=== PATIENT | male | born 1940 | race Caucasian/White ===

== ENCOUNTER 2018-04-20 09:47 | Observation (INO) ==
[2018-04-20 10:15] LABS: Basophils # 0.1 10*3/uL (0.0-0.2); Basophils % 0.9 % (0.0-0.8); Eosinophils # 0.4 10*3/uL (0.0-0.87); Eosinophils % 4.1 % (0.00-10.9); Hematocrit 46.5 VOL% (42.0-52.0); Hemoglobin 14.8 GM/DL (14.0-18.0); Immature Granulocytes % 0.6 %; Immature Granulocytes Absolute 0.05 #; Lymphocytes # 1.9 10*3/uL (1.4-4.0); Lymphocytes % 20.9 % (21.2-54.2); Mean Corpuscular HGB Conc 31.8 GM/DL (32-36); Mean Corpuscular Hemoglobin 26 PG (27-34); Mean Corpuscular Volume 80.9 FL (87-102); Mean Platelet Volume 10.8 FL (9.6-12.0); Monocytes # 0.8 10*3/uL (0.11-0.8); Monocytes % 8.5 % (1.7-12.7); Neutrophils # 5.8 10*3/uL (1.4-7.4); Platelet Count 220 T/CUMM (130-400); Red Blood Count 5.75 MC/CUMM (3.8-5.5); Red Cell Distribution Width 15.9 % (9.3-17.3); White Blood Count 8.9 T/CUMM (4-12)
[2018-04-20 10:22] LABS: Apearance,Urine CLEAR (Clear); Bacteria,Urine Occasional /HPF (Few); Bilirubin,Urine Negative (Negative); Blood, Urine Moderate mg/dL (Negative); Glucose,Urine (UA) Negative (Negative); Ketones,Urine Negative (Negative); Nitrite,Urine Negative (Negative); Protein,Urine 30 MG/DL; RBC,Urine 1 /HPF (0-4); Squamous Epithelial Cell,Urine Occasional /HPF (0-10); Urine Color Straw (Yellow); Urine Specific Gravity 1.005 (1.001-1.035); Urine Urobilinogen < 2.0 EU/DL (0.2-1.0); WBC,Urine 2 /HPF (0-6)
[2018-04-20 10:27] LABS: Osmolality,Calculated 285.1 MOS/KG (273-304); Potassium 3.7 MMOL/L (3.5-5.1)
[2018-04-20 11:49] LABS: PT Patient Result 11.2 SECS
[2018-04-20] MEDS ORDERED: MORPHINE 4 MG/1 ML VIAL IV PRN (11:58)
[2018-04-20] MEDS ORDERED: ONDANSETRON 4 MG/2 ML VIAL IV PRN (11:58)
[2018-04-20] MEDS ORDERED: ACETAMINOPHEN 325 MG TABLET PO PRN (11:58)
[2018-04-20] MEDS ORDERED: KETOROLAC 10 MG TABLET PO PRN (11:58)
[2018-04-20] MEDS ORDERED: BISACODYL 5 MG TABLET PO PRN (11:58)
[2018-04-20] MEDS ORDERED: hydrALAZINE 20 MG/1 ML VIAL IV PRN (12:02)
[2018-04-20] MEDS ORDERED: GLUCAGON 1 MG VIAL IM PRN (12:11)
[2018-04-20] MEDS ORDERED: DEXTROSE 50% 25 GM/50 ML VIAL IV PRN (12:11)
[2018-04-20] MEDS ORDERED: NON-FORMULARY MEDICATION (Liraglutide [Victoza 2-Pak] 1.2 MG) SUBCUT SCH (12:15)
[2018-04-20] MEDS ORDERED: TISSUE ADHESIVE 1 EACH APPLICATOR TOP ONE (12:57)
[2018-04-20] MEDS: sitaGLIPtin 100 MG TABLET PO SCH (14:45)
[2018-04-20] MEDS: PANTOPRAZOLE 40 MG TABLET PO SCH (14:45)
[2018-04-20] MEDS: ATORVASTATIN 40 MG TABLET PO SCH (14:45)
[2018-04-20] MEDS: PIOGLITAZONE 45 MG TABLET PO SCH (14:45)
[2018-04-20] MEDS: LACTATED RINGERS 1,000 ML IV SCH (14:46)
[2018-04-20] MEDS: CARVEDILOL 25 MG TABLET PO SCH (14:46)
[2018-04-20] MEDS: LISINOPRIL 20 MG TABLET PO SCH (14:46)
[2018-04-20] MEDS: INSULIN LISPRO 100 UNIT/ML SUBCUT SCH (16:51)
[2018-04-20] MEDS ORDERED: HydrOXYzine PAMOATE 25 MG CAPSULE PO SCH (21:00)
[2018-04-21] MEDS: LACTATED RINGERS 1,000 ML IV SCH (03:23)
[2018-04-21 04:58] LABS: Basophils # 0.1 10*3/uL (0.0-0.2); Basophils % 0.5 % (0.0-0.8); Eosinophils # 0.3 10*3/uL (0.0-0.87); Eosinophils % 2.6 % (0.00-10.9); Hematocrit 43.1 VOL% (42.0-52.0); Hemoglobin 13.8 GM/DL (14.0-18.0); Immature Granulocytes % 0.6 %; Immature Granulocytes Absolute 0.06 #; Lymphocytes # 2.3 10*3/uL (1.4-4.0); Lymphocytes % 21.3 % (21.2-54.2); Mean Corpuscular Hemoglobin 26 PG (27-34); Mean Platelet Volume 10.7 FL (9.6-12.0); Monocytes # 1.3 10*3/uL (0.11-0.8); Monocytes % 12.5 % (1.7-12.7); Neutrophils # 6.7 10*3/uL (1.4-7.4); Neutrophils % 62.5 % (38.7-73.9); Platelet Count 222 T/CUMM (130-400); Red Blood Count 5.32 MC/CUMM (3.8-5.5); Red Cell Distribution Width 15.8 % (9.3-17.3); White Blood Count 10.6 T/CUMM (4-12)
[2018-04-21 05:20] LABS: Osmolality,Calculated 281.3 MOS/KG (273-304); Potassium 3.1 MMOL/L (3.5-5.1)
[2018-04-21 05:24] LABS: Risk Ratio 6.09; VLDL CHOLESTEROL 53.4 MG/DL
[2018-04-21] MEDS: INSULIN LISPRO 100 UNIT/ML SUBCUT SCH ×2 (07:35→13:02)
[2018-04-21 07:42] VITALS: BP 174/82
[2018-04-21] MEDS: PIOGLITAZONE 45 MG TABLET PO SCH (09:06)
[2018-04-21] MEDS: ATORVASTATIN 40 MG TABLET PO SCH (09:06)
[2018-04-21] MEDS: LISINOPRIL 20 MG TABLET PO SCH (09:06)
[2018-04-21] MEDS: PANTOPRAZOLE 40 MG TABLET PO SCH (09:06)
[2018-04-21] MEDS: sitaGLIPtin 100 MG TABLET PO SCH (09:06)
[2018-04-21] MEDS: CARVEDILOL 25 MG TABLET PO SCH (09:07)
[2018-04-21] MEDS ORDERED: POTASSIUM CHLORIDE 20 MEQ TABLET PO ONE (09:39)
== END 2018-04-21 13:00 | disposition home or self-care (01) ==
LOC: EDUNIT# → EDBD → N.EDINP 09:47 → N.ED 09:47 → N.EDINP 13:07 → N.3E 13:10
PROVIDERS: ADMIT Surgery; ATTEND Surgery

== ENCOUNTER 2020-07-08 14:27 | Inpatient (IN) ==
[2020-07-08 15:10] LABS: Basophils % 0.3 % (0.0-0.8); Eosinophils # 0.2 10*3/uL (0.0-0.87); Eosinophils % 1.7 % (0.00-10.9); Hematocrit 45.5 VOL% (42.0-52.0); Hemoglobin 15.5 GM/DL (14.0-18.0); Immature Granulocytes % 1.4 %; Immature Granulocytes Absolute 0.18 #; Lymphocytes # 1.7 10*3/uL (1.4-4.0); Lymphocytes % 12.8 % (21.2-54.2); Mean Corpuscular HGB Conc 34.1 GM/DL (32-36); Mean Platelet Volume 11.5 FL (9.6-12.0); Monocytes % 7.3 % (1.7-12.7); Neutrophils % 76.5 % (38.7-73.9); Platelet Count 210 T/CUMM (130-400); Red Blood Count 5.55 MC/CUMM (3.8-5.5); Red Cell Distribution Width 13.6 % (9.3-17.3); White Blood Count 13.3 T/CUMM (4-12)
[2020-07-08 15:32] LABS: Albumin 3.9 G/DL (3.4-5.0); Calcium 9.4 MG/DL (8.5-10.1); INR 1.1; Osmolality,Calculated 273.5 MOS/KG (273-304); Partial Thromboplastin Time 28.2 SECS (23.9-33.8); Potassium 5.3 MMOL/L (3.5-5.1); Total Protein 7.9 G/DL (6.4-8.2)
[2020-07-08] MEDS ORDERED: ACETAMINOPHEN 325 MG TABLET PO PRN (15:51)
[2020-07-08] MEDS ORDERED: ONDANSETRON 4 MG/2 ML VIAL IV PRN (15:51)
[2020-07-08 16:12] LABS: Bacteria,Urine Occasional /HPF (Few); Bilirubin,Urine Negative (Negative); Blood, Urine Small mg/dL (Negative); Glucose,Urine (UA) >=500 mg/dL (Negative); Ketones,Urine Negative (Negative); Mucus,Urine Occasional /LPF (Occasional); Nitrite,Urine Negative (Negative); Protein,Urine >=500 MG/DL; RBC,Urine 2 /HPF (0-4); Squamous Epithelial Cell,Urine Occasional /HPF (0-10); Urine Appearance CLEAR (Clear); Urine Color Yellow (Yellow); Urine Specific Gravity 1.011 (1.001-1.035); Urine Urobilinogen < 2.0 EU/DL (0.2-1.0)
[2020-07-08] MEDS: DOCUSATE SODIUM 100 MG CAPSULE PO SCH (21:15)
[2020-07-09 06:42] LABS: Basophils # 0.1 10*3/uL (0.0-0.2); Basophils % 0.4 % (0.0-0.8); Eosinophils # 0.3 10*3/uL (0.0-0.87); Eosinophils % 1.8 % (0.00-10.9); Hematocrit 43.9 VOL% (42.0-52.0); Hemoglobin 14.7 GM/DL (14.0-18.0); Immature Granulocytes % 0.9 %; Immature Granulocytes Absolute 0.15 #; Lymphocytes # 2.5 10*3/uL (1.4-4.0); Lymphocytes % 15.1 % (21.2-54.2); Mean Corpuscular HGB Conc 33.5 GM/DL (32-36); Mean Corpuscular Volume 81.4 FL (87-102); Mean Platelet Volume 10.4 FL (9.6-12.0); Neutrophils % 69.8 % (38.7-73.9); Platelet Count 246 T/CUMM (130-400); Red Blood Count 5.39 MC/CUMM (3.8-5.5); Red Cell Distribution Width 13.5 % (9.3-17.3); White Blood Count 16.2 T/CUMM (4-12)
[2020-07-09 07:02] LABS: Calcium 9.5 MG/DL (8.5-10.1); Osmolality,Calculated 275.4 MOS/KG (273-304); Potassium 3.7 MMOL/L (3.5-5.1)
[2020-07-09 07:07] LABS: CKMB % 1.2 %
[2020-07-09 07:09] LABS: Troponin I 2.06 NG/ML (0.00-0.045)
[2020-07-09] MEDS ORDERED: ZALEPLON 5 MG CAPSULE PO PRN (08:32)
[2020-07-09] MEDS ORDERED: lisinopriL 20 MG TABLET PO SCH (09:00)
[2020-07-09] MEDS ORDERED: ENOXAPARIN 40 MG/0.4 ML SYRINGE SUBCUT SCH (09:00)
[2020-07-09] MEDS: PIOGLITAZONE 15 MG TABLET PO SCH (09:59)
[2020-07-09] MEDS: ASPIRIN EC 81 MG TABLET PO SCH (09:59)
[2020-07-09] MEDS: sitaGLIPtin 100 MG TABLET PO SCH (10:00)
[2020-07-09] MEDS: DOCUSATE SODIUM 100 MG CAPSULE PO SCH ×2 (10:00→20:33)
[2020-07-09] MEDS: ATORVASTATIN 40 MG TABLET PO SCH (10:00)
[2020-07-09] MEDS: PANTOPRAZOLE 40 MG TABLET PO SCH (10:00)
[2020-07-09] MEDS: carvediloL 12.5 MG TABLET PO SCH ×2 (10:01→20:34)
[2020-07-09 11:19] LABS: CKMB % 0.9 %
[2020-07-09 11:20] LABS: Troponin I 1.83 NG/ML (0.00-0.045)
[2020-07-09 11:58] LABS: CKMB % 0.8 %
[2020-07-09 11:59] LABS: Troponin I 1.83 NG/ML (0.00-0.045)
[2020-07-09] MEDS: INSULIN LISPRO 100 UNIT/ML SUBCUT SCH ×3 (14:27→21:27)
[2020-07-10 06:34] LABS: Basophils % 0.2 % (0.0-0.8); Eosinophils # 0.3 10*3/uL (0.0-0.87); Eosinophils % 1.6 % (0.00-10.9); Hematocrit 48.7 VOL% (42.0-52.0); Hemoglobin 15.8 GM/DL (14.0-18.0); Immature Granulocytes % 0.8 %; Immature Granulocytes Absolute 0.13 #; Lymphocytes # 2.3 10*3/uL (1.4-4.0); Lymphocytes % 13.9 % (21.2-54.2); Mean Corpuscular HGB Conc 32.4 GM/DL (32-36); Mean Corpuscular Volume 83.2 FL (87-102); Mean Platelet Volume 10.5 FL (9.6-12.0); Monocytes % 11.5 % (1.7-12.7); Platelet Count 262 T/CUMM (130-400); Red Blood Count 5.85 MC/CUMM (3.8-5.5); Red Cell Distribution Width 13.7 % (9.3-17.3); White Blood Count 16.1 T/CUMM (4-12)
[2020-07-10 06:52] LABS: Calcium 9.4 MG/DL (8.5-10.1); Osmolality,Calculated 273.4 MOS/KG (273-304); Potassium 3.8 MMOL/L (3.5-5.1)
[2020-07-10] MEDS: INSULIN LISPRO 100 UNIT/ML SUBCUT SCH ×4 (07:04→21:26)
[2020-07-10 07:18] LABS: Albumin 3.5 G/DL (3.4-5.0); Bilirubin,Total 1.3 MG/DL (0.2-1.0); Calcium 9.5 MG/DL (8.5-10.1); Osmolality,Calculated 274.4 MOS/KG (273-304); Potassium 3.8 MMOL/L (3.5-5.1); Thyroid Stimulating Hormone 4.13 uIU/ml (0.358-3.74); Total Protein 7.7 G/DL (6.4-8.2); VLDL CHOLESTEROL 59.8 MG/DL
[2020-07-10] MEDS: DOCUSATE SODIUM 100 MG CAPSULE PO SCH ×2 (09:24→21:25)
[2020-07-10] MEDS: PANTOPRAZOLE 40 MG TABLET PO SCH (09:24)
[2020-07-10] MEDS: ASPIRIN EC 81 MG TABLET PO SCH (09:24)
[2020-07-10] MEDS: sitaGLIPtin 100 MG TABLET PO SCH (09:24)
[2020-07-10] MEDS: PIOGLITAZONE 15 MG TABLET PO SCH (09:24)
[2020-07-10] MEDS: carvediloL 12.5 MG TABLET PO SCH ×2 (09:25→21:25)
[2020-07-10] MEDS: OLMESARTAN 20 MG TABLET PO SCH (09:25)
[2020-07-10] MEDS: ATORVASTATIN 40 MG TABLET PO SCH (09:26)
[2020-07-10] MEDS: LIRAGLUTIDE SUBCUT SCH (10:52)
[2020-07-10 10:53] LABS: Troponin I 0.998 NG/ML (0.00-0.045)
[2020-07-10] MEDS: LACTATED RINGERS 1,000 ML IV SCH (13:10)
[2020-07-10] MEDS ORDERED: ETOMIDATE 20 MG/10 ML VIAL IV ONE (14:20)
[2020-07-10] MEDS ORDERED: LIDOCAINE 2% 5 ML VIAL ONE (14:20)
[2020-07-10] MEDS ORDERED: propofoL 200 MG/20 ML VIAL IV ONE (14:32)
[2020-07-10] MEDS ORDERED: TUBERCULIN SKIN TEST 0.1 ML SYRINGE INTRADERM ONE (15:50)
[2020-07-10] MEDS: TAMSULOSIN 0.4 MG CAPSULE PO SCH (21:25)
[2020-07-11 05:33] LABS: Basophils # 0.1 10*3/uL (0.0-0.2); Basophils % 0.3 % (0.0-0.8); Eosinophils # 0.2 10*3/uL (0.0-0.87); Eosinophils % 1.1 % (0.00-10.9); Hematocrit 46.5 VOL% (42.0-52.0); Immature Granulocytes % 0.7 %; Lymphocytes # 1.9 10*3/uL (1.4-4.0); Lymphocytes % 12.4 % (21.2-54.2); Mean Corpuscular HGB Conc 32.3 GM/DL (32-36); Mean Corpuscular Volume 84.5 FL (87-102); Mean Platelet Volume 10.5 FL (9.6-12.0); Monocytes % 11.6 % (1.7-12.7); Neutrophils % 73.9 % (38.7-73.9); Platelet Count 243 T/CUMM (130-400); Red Cell Distribution Width 13.6 % (9.3-17.3); White Blood Count 15.3 T/CUMM (4-12)
[2020-07-11 05:48] LABS: Albumin 3.3 G/DL (3.4-5.0); Bilirubin,Total 1.4 MG/DL (0.2-1.0); Calcium 8.9 MG/DL (8.5-10.1); Osmolality,Calculated 280.1 MOS/KG (273-304); Potassium 3.8 MMOL/L (3.5-5.1); Total Protein 6.8 G/DL (6.4-8.2)
[2020-07-11 06:01] LABS: Calcium 8.9 MG/DL (8.5-10.1); Potassium 3.4 MMOL/L (3.5-5.1)
[2020-07-11] MEDS: ATORVASTATIN 40 MG TABLET PO SCH (09:38)
[2020-07-11] MEDS: PANTOPRAZOLE 40 MG TABLET PO SCH (09:38)
[2020-07-11] MEDS: ASPIRIN EC 81 MG TABLET PO SCH (09:38)
[2020-07-11] MEDS: PIOGLITAZONE 15 MG TABLET PO SCH (09:38)
[2020-07-11] MEDS: sitaGLIPtin 100 MG TABLET PO SCH (09:38)
[2020-07-11] MEDS: carvediloL 12.5 MG TABLET PO SCH ×3 (09:38→20:27)
[2020-07-11] MEDS: OLMESARTAN 20 MG TABLET PO SCH ×2 (09:38→09:42)
[2020-07-11] MEDS: DOCUSATE SODIUM 100 MG CAPSULE PO SCH ×2 (09:38→20:27)
[2020-07-11] MEDS: INSULIN LISPRO 100 UNIT/ML SUBCUT SCH ×4 (09:47→20:28)
[2020-07-11] MEDS: TAMSULOSIN 0.4 MG CAPSULE PO SCH ×2 (10:10→20:27)
[2020-07-11] MEDS: LIRAGLUTIDE SUBCUT SCH (10:50)
[2020-07-12] MEDS: LACTATED RINGERS 1,000 ML IV SCH ×2 (02:15→07:43)
[2020-07-12 06:06] LABS: Basophils # 0.1 10*3/uL (0.0-0.2); Basophils % 0.4 % (0.0-0.8); Eosinophils # 0.2 10*3/uL (0.0-0.87); Eosinophils % 1.3 % (0.00-10.9); Hematocrit 45.3 VOL% (42.0-52.0); Hemoglobin 14.7 GM/DL (14.0-18.0); Immature Granulocytes Absolute 0.15 #; Lymphocytes # 1.6 10*3/uL (1.4-4.0); Lymphocytes % 10.2 % (21.2-54.2); Mean Corpuscular HGB Conc 32.5 GM/DL (32-36); Mean Corpuscular Volume 83.9 FL (87-102); Mean Platelet Volume 10.4 FL (9.6-12.0); Monocytes % 10.3 % (1.7-12.7); Neutrophils % 76.8 % (38.7-73.9); Platelet Count 232 T/CUMM (130-400); Red Cell Distribution Width 13.7 % (9.3-17.3); White Blood Count 15.5 T/CUMM (4-12)
[2020-07-12 06:25] LABS: Calcium 8.8 MG/DL (8.5-10.1); Osmolality,Calculated 281.4 MOS/KG (273-304); Potassium 3.9 MMOL/L (3.5-5.1)
[2020-07-12] MEDS: LIRAGLUTIDE SUBCUT SCH (09:19)
[2020-07-12] MEDS: PIOGLITAZONE 15 MG TABLET PO SCH (09:21)
[2020-07-12] MEDS: INSULIN LISPRO 100 UNIT/ML SUBCUT SCH ×5 (09:21→21:09)
[2020-07-12] MEDS: carvediloL 12.5 MG TABLET PO SCH ×2 (09:21→21:10)
[2020-07-12] MEDS: DOCUSATE SODIUM 100 MG CAPSULE PO SCH ×2 (09:22→21:11)
[2020-07-12] MEDS: sitaGLIPtin 100 MG TABLET PO SCH (09:22)
[2020-07-12] MEDS: PANTOPRAZOLE 40 MG TABLET PO SCH (09:22)
[2020-07-12] MEDS: ATORVASTATIN 40 MG TABLET PO SCH (09:22)
[2020-07-12] MEDS: ASPIRIN EC 81 MG TABLET PO SCH (09:22)
[2020-07-12] MEDS: OLMESARTAN 20 MG TABLET PO SCH (09:22)
[2020-07-12] MEDS: TAMSULOSIN 0.4 MG CAPSULE PO SCH ×2 (09:22→21:10)
[2020-07-12 10:32] LABS: Bilirubin,Urine Negative (Negative); Blood, Urine Large mg/dL (Negative); Glucose,Urine (UA) >=500 mg/dL (Negative); Ketones,Urine Negative (Negative); Nitrite,Urine Negative (Negative); Protein,Urine 100 MG/DL; RBC,Urine 1563 /HPF (0-4); Urine Appearance CLOUDY (Clear); Urine Color Red (Yellow); Urine Specific Gravity 1.015 (1.001-1.035); Urine Urobilinogen < 2.0 EU/DL (0.2-1.0)
[2020-07-12] MEDS: cefTRIAXone 1,000 MG in SODIUM CHLORIDE 0.9% 100 ML IV SCH (11:45)
[2020-07-13 05:15] LABS: Basophils % 0.3 % (0.0-0.8); Eosinophils # 0.4 10*3/uL (0.0-0.87); Eosinophils % 3.4 % (0.00-10.9); Hematocrit 46.5 VOL% (42.0-52.0); Hemoglobin 14.2 GM/DL (14.0-18.0); Immature Granulocytes Absolute 0.12 #; Lymphocytes # 1.7 10*3/uL (1.4-4.0); Lymphocytes % 13.3 % (21.2-54.2); Mean Corpuscular HGB Conc 30.5 GM/DL (32-36); Mean Corpuscular Volume 88.4 FL (87-102); Mean Platelet Volume 11.5 FL (9.6-12.0); Monocytes % 9.2 % (1.7-12.7); Neutrophils % 72.8 % (38.7-73.9); Platelet Count 176 T/CUMM (130-400); Red Blood Count 5.26 MC/CUMM (3.8-5.5); Red Cell Distribution Width 13.7 % (9.3-17.3); White Blood Count 12.5 T/CUMM (4-12)
[2020-07-13 05:22] LABS: Calcium 8.8 MG/DL (8.5-10.1); Potassium 4.3 MMOL/L (3.5-5.1)
[2020-07-13] MEDS: INSULIN LISPRO 100 UNIT/ML SUBCUT SCH ×4 (06:54→20:35)
[2020-07-13] MEDS: LACTATED RINGERS 1,000 ML IV SCH (07:18)
[2020-07-13] MEDS: OLMESARTAN 20 MG TABLET PO SCH (09:14)
[2020-07-13] MEDS: sitaGLIPtin 100 MG TABLET PO SCH (09:15)
[2020-07-13] MEDS: PIOGLITAZONE 15 MG TABLET PO SCH (09:15)
[2020-07-13] MEDS: ASPIRIN EC 81 MG TABLET PO SCH (09:15)
[2020-07-13] MEDS: ATORVASTATIN 40 MG TABLET PO SCH (09:15)
[2020-07-13] MEDS: DOCUSATE SODIUM 100 MG CAPSULE PO SCH ×2 (09:15→20:35)
[2020-07-13] MEDS: TAMSULOSIN 0.4 MG CAPSULE PO SCH ×2 (09:15→20:35)
[2020-07-13] MEDS: PANTOPRAZOLE 40 MG TABLET PO SCH (09:15)
[2020-07-13] MEDS: carvediloL 12.5 MG TABLET PO SCH ×2 (09:15→20:35)
[2020-07-13] MEDS: LIRAGLUTIDE SUBCUT SCH (09:16)
[2020-07-13] MEDS: cefTRIAXone 1,000 MG in SODIUM CHLORIDE 0.9% 100 ML IV SCH (12:34)
[2020-07-14] MEDS: TAMSULOSIN 0.4 MG CAPSULE PO SCH ×2 (09:00→21:26)
[2020-07-14] MEDS: PIOGLITAZONE 15 MG TABLET PO SCH (09:01)
[2020-07-14] MEDS: sitaGLIPtin 100 MG TABLET PO SCH (09:02)
[2020-07-14] MEDS: ATORVASTATIN 40 MG TABLET PO SCH (09:02)
[2020-07-14] MEDS: OLMESARTAN 20 MG TABLET PO SCH (09:02)
[2020-07-14] MEDS: PANTOPRAZOLE 40 MG TABLET PO SCH (09:03)
[2020-07-14] MEDS: carvediloL 12.5 MG TABLET PO SCH (09:03)
[2020-07-14] MEDS: DOCUSATE SODIUM 100 MG CAPSULE PO SCH ×2 (09:03→21:26)
[2020-07-14] MEDS: ASPIRIN EC 81 MG TABLET PO SCH (09:03)
[2020-07-14] MEDS ORDERED: amLODIPine 5 MG TABLET PO SCH (10:30)
[2020-07-14] MEDS: LACTATED RINGERS 1,000 ML IV SCH (10:52)
[2020-07-14] MEDS: INSULIN LISPRO 100 UNIT/ML SUBCUT SCH ×4 (10:52→21:26)
[2020-07-14] MEDS: LIRAGLUTIDE SUBCUT SCH (10:53)
[2020-07-14] MEDS: cefTRIAXone 1,000 MG in SODIUM CHLORIDE 0.9% 100 ML IV SCH (13:14)
[2020-07-14] MEDS ORDERED: FINASTERIDE 5 MG TABLET PO SCH (21:00)
[2020-07-14] MEDS: carvediloL 6.25 MG TABLET PO SCH (21:27)
[2020-07-15 06:08] LABS: Calcium 9.2 MG/DL (8.5-10.1); Osmolality,Calculated 271.4 MOS/KG (273-304); Potassium 4.4 MMOL/L (3.5-5.1)
[2020-07-15 06:36] LABS: Basophils # 0.1 10*3/uL (0.0-0.2); Basophils % 0.6 % (0.0-0.8); Eosinophils # 0.4 10*3/uL (0.0-0.87); Eosinophils % 4.1 % (0.00-10.9); Hematocrit 47.7 VOL% (42.0-52.0); Hemoglobin 15.2 GM/DL (14.0-18.0); Immature Granulocytes Absolute 0.11 #; Lymphocytes # 2.2 10*3/uL (1.4-4.0); Lymphocytes % 19.9 % (21.2-54.2); Mean Corpuscular HGB Conc 31.9 GM/DL (32-36); Mean Corpuscular Volume 84.4 FL (87-102); Mean Platelet Volume 10.2 FL (9.6-12.0); Neutrophils % 64.4 % (38.7-73.9); Platelet Count 274 T/CUMM (130-400); Red Blood Count 5.65 MC/CUMM (3.8-5.5); Red Cell Distribution Width 13.6 % (9.3-17.3); White Blood Count 10.8 T/CUMM (4-12)
[2020-07-15] MEDS ORDERED: CEFUROXIME 500 MG TABLET PO SCH (09:00)
[2020-07-15] MEDS ORDERED: amLODIPine 10 MG TABLET PO SCH (09:00)
[2020-07-15] MEDS: OLMESARTAN 20 MG TABLET PO SCH (09:18)
[2020-07-15] MEDS: TAMSULOSIN 0.4 MG CAPSULE PO SCH (09:18)
[2020-07-15] MEDS: sitaGLIPtin 100 MG TABLET PO SCH (09:18)
[2020-07-15] MEDS: PIOGLITAZONE 15 MG TABLET PO SCH (09:18)
[2020-07-15] MEDS: ASPIRIN EC 81 MG TABLET PO SCH (09:18)
[2020-07-15] MEDS: ATORVASTATIN 40 MG TABLET PO SCH (09:19)
[2020-07-15] MEDS: DOCUSATE SODIUM 100 MG CAPSULE PO SCH (09:19)
[2020-07-15] MEDS: PANTOPRAZOLE 40 MG TABLET PO SCH (09:19)
[2020-07-15] MEDS: carvediloL 6.25 MG TABLET PO SCH (09:19)
[2020-07-15] MEDS: LIRAGLUTIDE SUBCUT SCH (09:27)
[2020-07-15] MEDS: INSULIN LISPRO 100 UNIT/ML SUBCUT SCH (09:52)
[2020-07-15] MEDS: LACTATED RINGERS 1,000 ML IV SCH (09:52)
[2020-07-15 11:58] VITALS: BP 162/70
== END 2020-07-15 14:30 | disposition swing bed (61) | DRG 69 ==
LOC: EDBD → EDUNIT# → N.ED 14:27 → N.EDINP 15:50 → N.3E 18:46
PROVIDERS: ADMIT Family Medicine; ATTEND Family Medicine

== ENCOUNTER 2020-09-25 09:06 | Inpatient (IN) ==
[2020-09-25] MEDS ORDERED: SODIUM CHLORIDE 0.9% 1,000 ML IV STA ×3 (10:12→12:00)
[2020-09-25 10:50] LABS: Basophils % 0.2 % (0.0-0.8); Eosinophils # 0.3 10*3/uL (0.0-0.87); Eosinophils % 3.1 % (0.00-10.9); Hematocrit 40.5 VOL% (42.0-52.0); Hemoglobin 13.1 GM/DL (14.0-18.0); Immature Granulocytes % 0.9 %; Immature Granulocytes Absolute 0.09 #; Lymphocytes % 19.1 % (21.2-54.2); Mean Corpuscular HGB Conc 32.3 GM/DL (32-36); Mean Corpuscular Volume 82.5 FL (87-102); Mean Platelet Volume 10.5 FL (9.6-12.0); Monocytes % 11.4 % (1.7-12.7); Neutrophils % 65.3 % (38.7-73.9); Platelet Count 167 T/CUMM (130-400); Red Blood Count 4.91 MC/CUMM (3.8-5.5); Red Cell Distribution Width 17.2 % (9.3-17.3); White Blood Count 10.6 T/CUMM (4-12)
[2020-09-25 11:00] LABS: INR 1.1; PT Patient Result 11.9 SECS (10.5-12.0); Partial Thromboplastin Time 29.9 SECS (23.9-33.8)
[2020-09-25 11:41] LABS: Albumin 3.1 G/DL (3.4-5.0); Bilirubin,Total 0.4 MG/DL (0.20-1.00); Calcium 8.7 MG/DL (8.5-10.1); Total Protein 7.5 G/DL (6.4-8.2)
[2020-09-25 11:47] LABS: Potassium 6.7 MMOL/L (3.5-5.1)
[2020-09-25 11:50] LABS: Osmolality,Calculated 325.4 MOS/KG (273-304)
[2020-09-25] MEDS ORDERED: DEXTROSE 50% 25 GM/50 ML VIAL IV STA (11:54)
[2020-09-25] MEDS ORDERED: INSULIN REGULAR 100 UNIT/ML IV STA (11:54)
[2020-09-25] MEDS ORDERED: SODIUM BICARBONATE 50 MEQ/50 ML VIAL IV STA (11:55)
[2020-09-25] MEDS ORDERED: CALCIUM CHLORIDE 1,000 MG/10 ML SYRINGE IV STA (11:55)
[2020-09-25] MEDS ORDERED: PIPERACILLIN/TAZOBACTAM 3,375 MG in SODIUM CHLORIDE 0.9% 100 ML IV STA (11:59)
[2020-09-25] MEDS ORDERED: MORPHINE 2 MG/1 ML SYRINGE IV PRN (12:22)
[2020-09-25 12:39] LABS: Bacteria,Urine Many /HPF (Few); Bilirubin,Urine Negative (Negative); Blood, Urine Moderate mg/dL (Negative); Glucose,Urine (UA) Negative (Negative); Hyaline Casts,Urine 12 /LPF (0-3); Ketones,Urine Negative (Negative); Mucus,Urine Occasional /LPF (Occasional); Nitrite,Urine Negative (Negative); Protein,Urine 100 MG/DL; RBC,Urine 55 /HPF (0-4); Squamous Epithelial Cell,Urine Occasional /HPF (0-10); Urine Appearance CLOUDY (Clear); Urine Color Amber (Yellow); Urine Specific Gravity 1.016 (1.001-1.035); Urine Urobilinogen < 2.0 EU/DL (0.2-1.0)
[2020-09-25 14:42] LABS: INR 1.1
[2020-09-25] MEDS: SODIUM BICARB INJ 150 MEQ in DEXTROSE 5% 1,000 ML IV SCH (14:54)
[2020-09-25] MEDS: cefTRIAXone 1,000 MG in SODIUM CHLORIDE 0.9% 100 ML IV SCH (14:54)
[2020-09-25] MEDS: HEPARIN 5,000 UNIT/1 ML VIAL SUBCUT SCH (14:54)
[2020-09-25 15:23] LABS: Calcium 9.1 MG/DL (8.5-10.1); Osmolality,Calculated 328.7 MOS/KG (273-304); Potassium 5.9 MMOL/L (3.5-5.1)
[2020-09-25] MEDS: NOREPINEPHRINE 8 MG in SODIUM CHLORIDE 0.9% 242 ML IV PRN ×2 (15:32→21:22)
[2020-09-25 16:57] LABS: Calcium 8.8 MG/DL (8.5-10.1); Osmolality,Calculated 328.5 MOS/KG (273-304)
[2020-09-25 17:02] LABS: Potassium 6.1 MMOL/L (3.5-5.1)
[2020-09-25] MEDS ORDERED: NOREPINEPHRINE 4 MG/4 ML VIAL IV ONE (21:18)
[2020-09-26] MEDS: SODIUM BICARB INJ 150 MEQ in DEXTROSE 5% 1,000 ML IV SCH ×2 (00:01→08:52)
[2020-09-26] MEDS: HEPARIN 5,000 UNIT/1 ML VIAL SUBCUT SCH ×3 (01:10→23:56)
[2020-09-26] MEDS: NOREPINEPHRINE 8 MG in SODIUM CHLORIDE 0.9% 242 ML IV PRN ×2 (02:45→20:44)
[2020-09-26 05:45] LABS: Basophils # 0.1 10*3/uL (0.0-0.2); Basophils % 0.4 % (0.0-0.8); Eosinophils # 0.2 10*3/uL (0.0-0.87); Eosinophils % 1.7 % (0.00-10.9); Hematocrit 46.2 VOL% (42.0-52.0); Hemoglobin 15.3 GM/DL (14.0-18.0); Immature Granulocytes % 1.3 %; Immature Granulocytes Absolute 0.15 #; Lymphocytes % 16.8 % (21.2-54.2); Mean Corpuscular HGB Conc 33.1 GM/DL (32-36); Mean Corpuscular Volume 80.2 FL (87-102); Mean Platelet Volume 10.3 FL (9.6-12.0); Monocytes % 11.9 % (1.7-12.7); Neutrophils % 67.9 % (38.7-73.9); Platelet Count 215 T/CUMM (130-400); Red Blood Count 5.76 MC/CUMM (3.8-5.5); Red Cell Distribution Width 17.4 % (9.3-17.3); White Blood Count 11.9 T/CUMM (4-12)
[2020-09-26 06:05] LABS: Bilirubin,Total 0.5 MG/DL (0.20-1.00); Calcium 8.7 MG/DL (8.5-10.1); Osmolality,Calculated 333.3 MOS/KG (273-304); Potassium 5.3 MMOL/L (3.5-5.1); Total Protein 7.6 G/DL (6.4-8.2)
[2020-09-26] MEDS ORDERED: MAGNESIUM SULF RIDER 2 GM/50 ML PREMIX IV ONE (08:06)
[2020-09-26] MEDS: PANTOPRAZOLE 40 MG TABLET PO SCH (08:28)
[2020-09-26] MEDS: SODIUM BICARB INJ 100 MEQ in DEXTROSE 5% 1,000 ML IV SCH ×2 (08:51→17:27)
[2020-09-26] MEDS ORDERED: DEXTROSE 50% 25 GM/50 ML VIAL IV PRN (09:59)
[2020-09-26] MEDS ORDERED: GLUCAGON 1 MG VIAL IM PRN (09:59)
[2020-09-26] MEDS: INSULIN LISPRO 100 UNIT/ML SUBCUT SCH ×3 (11:41→23:23)
[2020-09-26] MEDS: cefTRIAXone 1,000 MG in SODIUM CHLORIDE 0.9% 100 ML IV SCH (11:42)
[2020-09-26] MEDS ORDERED: INSULIN LISPRO 100 UNIT/ML SUBCUT SCH (22:00)
[2020-09-27] MEDS: SODIUM BICARB INJ 100 MEQ in DEXTROSE 5% 1,000 ML IV SCH (01:52)
[2020-09-27 04:20] LABS: Basophils # 0.1 10*3/uL (0.0-0.2); Basophils % 0.5 % (0.0-0.8); Eosinophils # 0.2 10*3/uL (0.0-0.87); Eosinophils % 1.8 % (0.00-10.9); Hematocrit 40.8 VOL% (42.0-52.0); Hemoglobin 13.7 GM/DL (14.0-18.0); Immature Granulocytes % 0.8 %; Lymphocytes # 2.7 10*3/uL (1.4-4.0); Lymphocytes % 21.5 % (21.2-54.2); Mean Corpuscular HGB Conc 33.6 GM/DL (32-36); Mean Corpuscular Volume 79.1 FL (87-102); Mean Platelet Volume 10.9 FL (9.6-12.0); Monocytes % 15.2 % (1.7-12.7); Neutrophils % 60.2 % (38.7-73.9); Platelet Count 160 T/CUMM (130-400); Red Blood Count 5.16 MC/CUMM (3.8-5.5); Red Cell Distribution Width 17.1 % (9.3-17.3); White Blood Count 12.6 T/CUMM (4-12)
[2020-09-27 04:46] LABS: Calcium 8.2 MG/DL (8.5-10.1); Osmolality,Calculated 318.1 MOS/KG (273-304); Potassium 4.1 MMOL/L (3.5-5.1)
[2020-09-27] MEDS: INSULIN LISPRO 100 UNIT/ML SUBCUT SCH ×4 (06:02→23:39)
[2020-09-27] MEDS: PANTOPRAZOLE 40 MG TABLET PO SCH (08:00)
[2020-09-27] MEDS: SODIUM CHLORIDE 0.9% 1,000 ML IV SCH ×2 (09:16→18:01)
[2020-09-27] MEDS: cefTRIAXone 1,000 MG in SODIUM CHLORIDE 0.9% 100 ML IV SCH (11:34)
[2020-09-27] MEDS: HEPARIN 5,000 UNIT/1 ML VIAL SUBCUT SCH (11:34)
[2020-09-27] MEDS: MEROPENEM 500 MG in SODIUM CHLORIDE 0.9% 100 ML IV SCH (13:04)
[2020-09-27 23:32] LABS: Calcium 8.3 MG/DL (8.5-10.1); Osmolality,Calculated 313.8 MOS/KG (273-304); Potassium 3.8 MMOL/L (3.5-5.1)
[2020-09-27] MEDS ORDERED: MAGNESIUM SULF RIDER 4 GM/100 ML PREMIX IV PRN (23:40)
[2020-09-28] MEDS: HEPARIN 5,000 UNIT/1 ML VIAL SUBCUT SCH ×2 (00:47→12:36)
[2020-09-28] MEDS: MAGNESIUM SULF RIDER 2 GM/50 ML PREMIX IV PRN (00:47)
[2020-09-28] MEDS: SODIUM CHLORIDE 0.9% 1,000 ML IV SCH (02:01)
[2020-09-28 04:33] LABS: Basophils % 0.2 % (0.0-0.8); Eosinophils # 0.1 10*3/uL (0.0-0.87); Eosinophils % 0.6 % (0.00-10.9); Hematocrit 41.4 VOL% (42.0-52.0); Hemoglobin 13.1 GM/DL (14.0-18.0); Immature Granulocytes % 0.7 %; Immature Granulocytes Absolute 0.08 #; Lymphocytes # 1.6 10*3/uL (1.4-4.0); Lymphocytes % 14.6 % (21.2-54.2); Mean Corpuscular HGB Conc 31.6 GM/DL (32-36); Mean Corpuscular Volume 83.3 FL (87-102); Mean Platelet Volume 10.7 FL (9.6-12.0); Neutrophils % 68.9 % (38.7-73.9); Platelet Count 155 T/CUMM (130-400); Red Blood Count 4.97 MC/CUMM (3.8-5.5); Red Cell Distribution Width 17.1 % (9.3-17.3)
[2020-09-28 04:37] LABS: Calcium 8.4 MG/DL (8.5-10.1); Osmolality,Calculated 311.7 MOS/KG (273-304); Potassium 3.7 MMOL/L (3.5-5.1)
[2020-09-28 04:38] LABS: Uric Acid 12.6 MG/DL (3.5-7.2)
[2020-09-28 04:48] LABS: Bilirubin,Urine Negative (Negative); Blood, Urine Moderate mg/dL (Negative); Glucose,Urine (UA) Negative (Negative); Hyaline Casts,Urine 10 /LPF (0-3); Ketones,Urine Negative (Negative); Nitrite,Urine Negative (Negative); Protein,Urine 30 MG/DL; RBC,Urine 20 /HPF (0-4); Urine Appearance CLOUDY (Clear); Urine Color Yellow (Yellow); Urine Specific Gravity 1.012 (1.001-1.035); Urine Urobilinogen < 2.0 EU/DL (0.2-1.0)
[2020-09-28] MEDS: INSULIN LISPRO 100 UNIT/ML SUBCUT SCH ×3 (06:46→19:46)
[2020-09-28] MEDS: PANTOPRAZOLE 40 MG TABLET PO SCH (08:09)
[2020-09-28] MEDS: SODIUM CHLORIDE 0.45% 1,000 ML IV SCH ×3 (09:37→20:12)
[2020-09-28 12:00] LABS: Albumin 2.7 G/DL (3.4-5.0); Bilirubin,Direct 0.18 MG/DL (0.0-0.20); Bilirubin,Indirect 0.7 MG/DL (0.0-1.0); Bilirubin,Total 0.9 MG/DL (0.20-1.00); Total Protein 6.8 G/DL (6.4-8.2)
[2020-09-28] MEDS: MEROPENEM 500 MG in SODIUM CHLORIDE 0.9% 100 ML IV SCH (12:36)
[2020-09-29] MEDS: INSULIN LISPRO 100 UNIT/ML SUBCUT SCH ×4 (00:19→17:43)
[2020-09-29] MEDS: HEPARIN 5,000 UNIT/1 ML VIAL SUBCUT SCH ×2 (00:34→12:26)
[2020-09-29 05:24] LABS: Basophils % 0.3 % (0.0-0.8); Eosinophils # 0.2 10*3/uL (0.0-0.87); Eosinophils % 1.7 % (0.00-10.9); Hematocrit 38.1 VOL% (42.0-52.0); Immature Granulocytes % 0.7 %; Immature Granulocytes Absolute 0.06 #; Lymphocytes # 1.5 10*3/uL (1.4-4.0); Lymphocytes % 16.5 % (21.2-54.2); Mean Corpuscular HGB Conc 31.5 GM/DL (32-36); Mean Corpuscular Volume 83.2 FL (87-102); Mean Platelet Volume 10.7 FL (9.6-12.0); Monocytes % 11.6 % (1.7-12.7); Neutrophils % 69.2 % (38.7-73.9); Platelet Count 133 T/CUMM (130-400); Red Blood Count 4.58 MC/CUMM (3.8-5.5); White Blood Count 8.8 T/CUMM (4-12)
[2020-09-29 05:51] LABS: Calcium 7.7 MG/DL (8.5-10.1); Osmolality,Calculated 304.6 MOS/KG (273-304); Potassium 3.3 MMOL/L (3.5-5.1)
[2020-09-29] MEDS: SODIUM CHLORIDE 0.45% 1,000 ML IV SCH ×2 (05:58→16:36)
[2020-09-29] MEDS: PANTOPRAZOLE 40 MG TABLET PO SCH (08:43)
[2020-09-29] MEDS: TAMSULOSIN 0.4 MG CAPSULE PO SCH ×2 (08:43→21:37)
[2020-09-29] MEDS: MEROPENEM 500 MG in SODIUM CHLORIDE 0.9% 100 ML IV SCH (13:24)
[2020-09-29] MEDS: FINASTERIDE 5 MG TABLET PO SCH (21:37)
[2020-09-30] MEDS: INSULIN LISPRO 100 UNIT/ML SUBCUT SCH ×4 (01:33→18:10)
[2020-09-30] MEDS: SODIUM CHLORIDE 0.45% 1,000 ML IV SCH ×2 (01:47→14:33)
[2020-09-30] MEDS: HEPARIN 5,000 UNIT/1 ML VIAL SUBCUT SCH ×2 (01:48→12:45)
[2020-09-30 04:36] LABS: Basophils % 0.2 % (0.0-0.8); Eosinophils # 0.2 10*3/uL (0.0-0.87); Eosinophils % 1.9 % (0.00-10.9); Hematocrit 35.7 VOL% (42.0-52.0); Hemoglobin 11.4 GM/DL (14.0-18.0); Immature Granulocytes % 0.9 %; Immature Granulocytes Absolute 0.08 #; Lymphocytes # 1.8 10*3/uL (1.4-4.0); Lymphocytes % 19.1 % (21.2-54.2); Mean Corpuscular HGB Conc 31.9 GM/DL (32-36); Mean Platelet Volume 10.5 FL (9.6-12.0); Monocytes % 11.1 % (1.7-12.7); Neutrophils % 66.8 % (38.7-73.9); Platelet Count 138 T/CUMM (130-400); Red Blood Count 4.25 MC/CUMM (3.8-5.5); White Blood Count 9.3 T/CUMM (4-12)
[2020-09-30 05:12] LABS: Albumin 2.1 G/DL (3.4-5.0); Bilirubin,Total 1.5 MG/DL (0.20-1.00); Calcium 7.4 MG/DL (8.5-10.1); Osmolality,Calculated 289.1 MOS/KG (273-304); Potassium 3.3 MMOL/L (3.5-5.1); Total Protein 5.7 G/DL (6.4-8.2)
[2020-09-30] MEDS: TAMSULOSIN 0.4 MG CAPSULE PO SCH ×2 (10:03→21:25)
[2020-09-30] MEDS: PANTOPRAZOLE 40 MG TABLET PO SCH (10:03)
[2020-09-30] MEDS: MAGNESIUM SULF RIDER 2 GM/50 ML PREMIX IV PRN (10:05)
[2020-09-30] MEDS: MEROPENEM 500 MG in SODIUM CHLORIDE 0.9% 100 ML IV SCH (14:04)
[2020-09-30] MEDS: FINASTERIDE 5 MG TABLET PO SCH (21:25)
[2020-10-01] MEDS: SODIUM CHLORIDE 0.45% 1,000 ML IV SCH ×2 (00:58→18:02)
[2020-10-01] MEDS: INSULIN LISPRO 100 UNIT/ML SUBCUT SCH ×4 (00:59→17:51)
[2020-10-01] MEDS: HEPARIN 5,000 UNIT/1 ML VIAL SUBCUT SCH ×2 (01:06→13:32)
[2020-10-01 05:24] LABS: Basophils % 0.4 % (0.0-0.8); Eosinophils # 0.2 10*3/uL (0.0-0.87); Eosinophils % 2.4 % (0.00-10.9); Hematocrit 36.1 VOL% (42.0-52.0); Hemoglobin 11.7 GM/DL (14.0-18.0); Immature Granulocytes % 0.8 %; Immature Granulocytes Absolute 0.07 #; Lymphocytes # 1.9 10*3/uL (1.4-4.0); Lymphocytes % 20.3 % (21.2-54.2); Mean Corpuscular HGB Conc 32.4 GM/DL (32-36); Mean Platelet Volume 10.3 FL (9.6-12.0); Monocytes % 10.8 % (1.7-12.7); Neutrophils % 65.3 % (38.7-73.9); Platelet Count 144 T/CUMM (130-400); Red Blood Count 4.35 MC/CUMM (3.8-5.5); Red Cell Distribution Width 16.4 % (9.3-17.3); White Blood Count 9.3 T/CUMM (4-12)
[2020-10-01 05:53] LABS: Calcium 6.9 MG/DL (8.5-10.1); Osmolality,Calculated 280.4 MOS/KG (273-304); Potassium 3.3 MMOL/L (3.5-5.1)
[2020-10-01] MEDS: POTASSIUM CHLORIDE 10 MEQ TABLET PO SCH ×2 (09:12→22:26)
[2020-10-01] MEDS: PANTOPRAZOLE 40 MG TABLET PO SCH (09:12)
[2020-10-01] MEDS: TAMSULOSIN 0.4 MG CAPSULE PO SCH ×2 (09:12→22:26)
[2020-10-01] MEDS: MAGNESIUM SULF RIDER 2 GM/50 ML PREMIX IV PRN (10:17)
[2020-10-01] MEDS: POTASSIUM CHLORIDE INJ 20 MEQ, MAGNESIUM SULF INJ 2 GM in SODIUM CHLORIDE 0.45% 1,000 ML IV SCH (11:14)
[2020-10-01] MEDS: MEROPENEM 500 MG in SODIUM CHLORIDE 0.9% 100 ML IV SCH (12:54)
[2020-10-01] MEDS: FINASTERIDE 5 MG TABLET PO SCH (22:27)
[2020-10-02] MEDS: INSULIN LISPRO 100 UNIT/ML SUBCUT SCH ×4 (00:22→18:12)
[2020-10-02] MEDS: HEPARIN 5,000 UNIT/1 ML VIAL SUBCUT SCH ×2 (00:33→12:23)
[2020-10-02] MEDS: POTASSIUM CHLORIDE INJ 20 MEQ, MAGNESIUM SULF INJ 2 GM in SODIUM CHLORIDE 0.45% 1,000 ML IV SCH ×2 (02:59→17:39)
[2020-10-02 05:42] LABS: Basophils % 0.5 % (0.0-0.8); Eosinophils # 0.2 10*3/uL (0.0-0.87); Eosinophils % 2.7 % (0.00-10.9); Hematocrit 37.2 VOL% (42.0-52.0); Hemoglobin 12.2 GM/DL (14.0-18.0); Immature Granulocytes % 0.9 %; Immature Granulocytes Absolute 0.08 #; Lymphocytes # 1.7 10*3/uL (1.4-4.0); Lymphocytes % 19.2 % (21.2-54.2); Mean Corpuscular HGB Conc 32.8 GM/DL (32-36); Mean Corpuscular Volume 81.9 FL (87-102); Mean Platelet Volume 10.5 FL (9.6-12.0); Monocytes % 10.8 % (1.7-12.7); Neutrophils % 65.9 % (38.7-73.9); Platelet Count 146 T/CUMM (130-400); Red Blood Count 4.54 MC/CUMM (3.8-5.5); Red Cell Distribution Width 16.2 % (9.3-17.3); White Blood Count 8.6 T/CUMM (4-12)
[2020-10-02 06:03] LABS: Calcium 7.3 MG/DL (8.5-10.1); Osmolality,Calculated 274.7 MOS/KG (273-304); Potassium 3.8 MMOL/L (3.5-5.1)
[2020-10-02 06:11] LABS: Albumin 2.1 G/DL (3.4-5.0); Bilirubin,Total 1.1 MG/DL (0.20-1.00); Calcium 7.5 MG/DL (8.5-10.1); Osmolality,Calculated 274.7 MOS/KG (273-304); Potassium 3.8 MMOL/L (3.5-5.1)
[2020-10-02] MEDS: TAMSULOSIN 0.4 MG CAPSULE PO SCH ×2 (08:53→22:21)
[2020-10-02] MEDS: PANTOPRAZOLE 40 MG TABLET PO SCH (08:53)
[2020-10-02] MEDS: POTASSIUM CHLORIDE 10 MEQ TABLET PO SCH ×2 (08:53→22:20)
[2020-10-02] MEDS: MEROPENEM 500 MG in SODIUM CHLORIDE 0.9% 100 ML IV SCH (12:23)
[2020-10-02] MEDS: FINASTERIDE 5 MG TABLET PO SCH (22:21)
[2020-10-03] MEDS: INSULIN LISPRO 100 UNIT/ML SUBCUT SCH ×2 (02:54→07:45)
[2020-10-03] MEDS: POTASSIUM CHLORIDE INJ 20 MEQ, MAGNESIUM SULF INJ 2 GM in SODIUM CHLORIDE 0.45% 1,000 ML IV SCH (02:54)
[2020-10-03] MEDS: HEPARIN 5,000 UNIT/1 ML VIAL SUBCUT SCH (02:55)
[2020-10-03 04:23] LABS: Basophils % 0.5 % (0.0-0.8); Eosinophils # 0.2 10*3/uL (0.0-0.87); Eosinophils % 2.2 % (0.00-10.9); Hematocrit 37.2 VOL% (42.0-52.0); Immature Granulocytes % 0.8 %; Immature Granulocytes Absolute 0.07 #; Lymphocytes # 2.2 10*3/uL (1.4-4.0); Lymphocytes % 25.8 % (21.2-54.2); Mean Corpuscular HGB Conc 32.3 GM/DL (32-36); Mean Corpuscular Volume 82.1 FL (87-102); Mean Platelet Volume 10.2 FL (9.6-12.0); Monocytes % 11.2 % (1.7-12.7); Neutrophils % 59.5 % (38.7-73.9); Platelet Count 175 T/CUMM (130-400); Red Blood Count 4.53 MC/CUMM (3.8-5.5); Red Cell Distribution Width 16.3 % (9.3-17.3); White Blood Count 8.7 T/CUMM (4-12)
[2020-10-03 08:04] VITALS: BP 121/61
[2020-10-03] MEDS ORDERED: SULFAMETHOX/TRIMETHOPRIM 800-160 MG TABLET PO SCH (09:00)
[2020-10-03] MEDS: TAMSULOSIN 0.4 MG CAPSULE PO SCH (09:32)
[2020-10-03] MEDS: PANTOPRAZOLE 40 MG TABLET PO SCH (09:32)
[2020-10-03] MEDS: POTASSIUM CHLORIDE 10 MEQ TABLET PO SCH (09:32)
== END 2020-10-03 11:28 | DRG 871 ==
LOC: N.ED 09:06 → SUATTDRO 12:22 → N.EDINP 12:22 → N.ICU 12:53 → N.TELEN 09-28 15:18
PROVIDERS: ADMIT Family Medicine; ATTEND Family Medicine